=== PATIENT | male | born 1970 | race Caucasian/White ===

== ENCOUNTER 2021-08-17 12:51 | Outpatient (CLI) | payer OTHER, BC, SELFPAY ==
--- NOTE | ~2021-08-17 | XR_ITS ---
XR shoulder LT min 2V DATE: 08/17/2021 13:59 INDICATION: Ground-level fall a few months ago with left shoulder injury, posterior left shoulder fred n TECHNIQUE: 4 views COMPARISON: None FINDINGS: There is mild degenerative spurring of the left acromioclavicular joint. No periosteal reac tion or bone destruction or abnormal soft tissue calcification of the left shoulder. There is degenerative disc disease and included C4-5, C5-6 and C6-7 interspaces in addition to uncove rtebral joint spurring. IMPRESSION: Degenerative disc disease and uncovertebral joint spurring the lower cervical spine Mild degenerative change of the left acromioclavicular joint No fracture or dislocation of left shoulder Reviewed, dictated and finalized at location [facility]. IMPRESSION: Degenerative disc disease and uncovertebral joint spurring the lowe r cervical spine Mild degenerative change of the left acromioclavicular joint No fracture or dislocation of left shoulder
--- NOTE | ~2021-08-17 | XR_ITS ---
XR_[id number]_CR DATE: 08/17/2021 13:58 INDICATION: Left neck pain, radiculopathy TECHNIQUE: AP, open-mouth, lateral views COMPARISON: None FINDINGS: C1 and C2 are normally aligned and the odontoid process is intact. There is straightening and mild reversal of the cervical spine. There is severe degenerative disc disease at C3-4, C4-5, C5-C6 and C6-7. Prominent degenerative disc disease at C5-6 and C6-7. No fracture or dislocation or locked facet or prevertebral soft tissue swelling. Normal sella turcica. The patient is a denture less. IMPRESSION: Straightening and mild reversal of cervical spine Moderately severe degenerative disc disease from C3-4 through C6-7 Prominent uncovertebral joint spurring at C5-6 and C6-7 Reviewed, dictated and finalized at [facility]. Reviewed, dictated and finalized at location [facility].
--- NOTE | 2021-08-17 13:13 | ECG_ITS ---
Measurements Intervals [place] Rate: 60 P: -22 OR: 143 QRS: 12 QRSD: 82 T: 18 QT: 387 QTc: 387 Interpretive Statements SINUS RHYTHM NO PREVIOUS ECG AVAILABLE FOR COMPARISON Electronically Signed On 08-17-2021 18:58:11 CDT by Tawanna Hayes M.D.
== END 2021-08-17 12:52 | disposition home or self-care (01) ==
PROVIDERS: PCP Physician Assistant; Visit Provider Physician Assistant
DX: I63.9 Cerebral infarction, unspecified (principal); M54.12 Radiculopathy, cervical region; M50.323 Other cervical disc degeneration at C6-C7 level; M19.012 Primary osteoarthritis, left shoulder
CPT/HCPCS: 72040; 73030; 93005